=== PATIENT | female | born 1985 | race Caucasian/White ===

== ENCOUNTER 2016-12-25 20:50 | Emergency (ER) | payer OTHER ==
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
--- NOTE | 2016-12-25 21:24 | ED CLINICAL REPORT ---
Clinical Report - Physicians/Mid Levels [facility] [address] [place] [place] [address] 12/25/2016 20:51 Patient: SULAIMAN WYLIE *This is a preliminary document and is subject to change Time Seen: 21:01; initial patient contact. CLINICAL IMPRESSION Single superficial puncture wound to the left lower leg. Delayed treatment. No puncture wound with foreign body present or infected puncture wound. INSTRUCTIONS Protect wound and keep wound area clean. You may wash wounds briefly, then dry. Apply bacitracin twice daily. Your Current Medications: CONTINUE TAKING THE FOLLOWING MEDICATIONS: Aleve Oral. Colloidal Silver*. Fish Oil Oral. Follow-up: Follow up with your doctor if not better. Call for an appointment. Screening today revealed the patient's blood pressure to be in the hypertensive range. The patient should follow up with a primary care provider for blood pressure management. Emmanuel Lynch Dr.
--- NOTE | 2016-12-25 21:24 | ED CLINICAL REPORT ---
Clinical Report - Physicians/Mid Levels [facility] [address] [place] [address] 12/25/2016 20:51 Patient: SULAIMAN WYLIE *This is a preliminary document and is subject to change Time Seen: 21:01; initial patient contact. CLINICAL IMPRESSION Single superficial puncture wound to the left lower leg. Delayed treatment. No puncture wound with foreign body present or infected puncture wound. INSTRUCTIONS Protect wound and keep wound area clean. You may wash wounds briefly, then dry. Apply bacitracin twice daily. Your Current Medications: CONTINUE TAKING THE FOLLOWING MEDICATIONS: Aleve Oral. Colloidal Silver*. Fish Oil Oral. Follow-up: Follow up with your doctor if not better. Call for an appointment. Screening today revealed the patient's blood pressure to be in the hypertensive range. The patient should follow up with a primary care provider for blood pressure management. Emmanuel Lynch Dr.
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
--- NOTE | 2017-01-08 20:24 | ED MAR SUMMARY ---
..... Medication Administration Record [facility] [address] [place], [place] [id number] Patient: SULAIMAN WYLIE Visit ID: [id number] 31y, F Weight: 72.5 kg Height/Length: 64 in BMI: 27.5 ALLERGIES: Several lotions, creams
--- NOTE | 2017-01-08 20:24 | ED MAR SUMMARY ---
..... Medication Administration Record [facility] [address] [place], [place] [id number] Patient: SULAIMAN WYLIE Visit ID: [id number] 31y, F Weight: 72.5 kg Height/Length: 64 in BMI: 27.5 ALLERGIES: Several lotions, creams
--- NOTE | 2017-01-08 20:24 | ED MED RECONCILIATION SUMMARY ---
Patient: SULAIMAN WYLIE Medication Reconciliation Report [facility] VisitID: [id number] [address] [place] [address] 31y, F Registration Date/Time: 12/25/2016 Weight: 72.5 kg Height/Length: 64 in. BMI: 27.5 ALLERGIES: Several lotions, creams The patient's Home Medications are listed below: CONTINUE TAKING THE FOLLOWING MEDICATIONS: Aleve Oral Colloidal Silver Fish Oil Oral The source(s) of the original Home Medication information: patient The following Medications were given to the patient in the Emergency Department: None. The following Medications were prescribed to the patient: None.
--- NOTE | 2017-01-08 20:24 | ED DISCHARGE INSTRUCTIONS ---
Patient: SULAIMAN WYLIE General Instructions [facility] VisitID: [id number] [place] [place] [address] 31y, F Registration Date/Time: 12/25/2016 Single superficial puncture wound to the left lower leg. Delayed treatment. No puncture wound with foreign body present or infected puncture wound. INSTRUCTIONS Protect wound and keep wound area clean. You may wash wounds briefly, then dry. Apply bacitracin twice daily. Your Current Medications: CONTINUE TAKING THE FOLLOWING MEDICATIONS: Aleve Oral. Colloidal Silver*. Fish Oil Oral. Follow-up: Follow up with your doctor if not better. Call for an appointment. Screening today revealed the patient's blood pressure to be in the hypertensive range. The patient should follow up with a primary care provider for blood pressure management. ADDITIONAL INFORMATION Puncture Wound (General) A puncture wound is a hole through the skin. Bacteria, dirt and debris can be drawn into this wound, increasing the risk of infection. However, antibiotics are usually not prescribed for this injury unless signs of infection are already present. Therefore, it is important to observe the wound closely for the signs of infection listed below. Home Care: If your wound is on an arm, hand, leg, or foot, keep that part raised during the first 48 hours to reduce swelling and pain. Keep the wound clean and dry. If a bandage was applied and it becomes wet or dirty, replace it. Otherwise, leave it in place for the next 24 hours. You may use acetaminophen (Tylenol) or ibuprofen (Motrin, Advil) to control pain, unless another medicine was prescribed. [NOTE: If you have chronic liver or kidney disease or ever had a stomach ulcer or GI bleeding, talk with your doctor before using these medicines.] You may shower as usual. However, do not soak the area in water (no baths or swimming) during the first 48 hours. Follow Up: Most puncture wounds heal within 10 days. However, an infection may sometimes occur despite proper treatment. If small particles were drawn into the puncture wound (such as fragments of cloth, rubber, wood or dirt), an infection may occur. These fragments are very hard to find during the first exam since it is not possible to get a good look inside a puncture wound and they do not show on an X-ray. Antibiotics and a minor surgical procedure to find and remove the foreign object will be needed if this happens. Therefore, check the wound daily for the warning signs listed below. Get Prompt Medical Attention if any of the following occur: SIGNS OF INFECTION: Increasing pain in the wound Redness, swelling, pus or red lines coming from the wound Fever of 100.4F (38C) or higher, or as directed by your healthcare provider You have been given the following additional information: Puncture Wound, General (Electronically signed by Emmanuel Lynch Dr. 12/25/2016 21:38)
--- NOTE | 2017-01-08 20:24 | ED MED RECONCILIATION SUMMARY ---
Patient: SULAIMAN WYLIE Medication Reconciliation Report [facility] VisitID: [id number] [address] [place] [address] 31y, F Registration Date/Time: 12/25/2016 Weight: 72.5 kg Height/Length: 64 in. BMI: 27.5 ALLERGIES: Several lotions, creams The patient's Home Medications are listed below: CONTINUE TAKING THE FOLLOWING MEDICATIONS: Aleve Oral Colloidal Silver Fish Oil Oral The source(s) of the original Home Medication information: patient The following Medications were given to the patient in the Emergency Department: None. The following Medications were prescribed to the patient: None.
== END 2016-12-25 21:34 | disposition home or self-care (01) ==
LOC: ED SRH 20:50
DX: S81.832A Puncture wound without foreign body, left lower leg, initial encounter (principal); W45.8XXA Other foreign body or object entering through skin, initial encounter; Y93.9 Activity, unspecified; Y99.9 Unspecified external cause status; Y92.9 Unspecified place or not applicable; F17.200 Nicotine dependence, unspecified, uncomplicated